=== PATIENT | female | born 1955 | race Caucasian/White ===

== ENCOUNTER → 2019-01-30 | Outpatient (CLI) | payer MEDICARE ==
--- NOTE | 2019-02-07 13:43 | MM ---
Reason for exam: screening (asymptomatic). Last mammogram was performed 10 years and 5 months ago. History: Patient is postmenopausal. Family history of breast cancer in mother at age 80. Physical Findings: A clinical breast exam by your physician is recommended on an annual basis and results should be correlated with mammographic findings. MG 3D Screening Mammo W/Cad Bilateral CC and MLO view(s) were taken. Prior study comparison: August 25, 2008, mammogram, performed at [place]. The breast tissue is heterogeneously dense. This may lower the sensitivity of mammography. Benign appearing bilateral calcifications. No suspicious abnormality on the right breast. Central left middle depth asymmetry. ASSESSMENT: Incomplete: need additional imaging evaluation, BI-RAD 0 RECOMMENDATION: Special view mammogram of the left breast. If lesion persists on supplemental views, image directed ultrasound is recommended. [facility] will attempt to contact patient to return for supplemental views and ultrasound if indicated.
== END | disposition home or self-care (01) ==
LOC: RADMAMWWP 14:11
PROVIDERS: ATTEND Family Medicine
DX: Z12.31 Encounter for screening mammogram for malignant neoplasm of breast (principal)
CPT/HCPCS: 77063; 77067

== ENCOUNTER → 2019-02-20 | Outpatient (CLI) | payer MEDICARE ==
--- NOTE | 2019-02-20 14:50 | MM ---
Reason for exam: additional evaluation requested from abnormal screening. Last mammogram was performed 1 month ago. History: Patient is postmenopausal. Family history of breast cancer in mother at age 80. Physical Findings: Nurse did not find any significant physical abnormalities on exam. MG 3D Work Up W/Cad LT Spot compression CC, spot compression MLO, and ML view(s) were taken of the left breast. Prior study comparison: January 30, 2019, bilateral MG 3d screening mammo w/cad. August 25, 2008, mammogram, performed at [place]. The breast tissue is heterogeneously dense. This may lower the sensitivity of mammography. The previously seen abnormality resolves on additional views and appears as fibroglandular tissue compatible with summation. No suspicious abnormality. These results were verbally communicated with the patient and result sheet given to the patient on 02/20/19. ASSESSMENT: Benign, BI-RAD 2 RECOMMENDATION: Return to routine screening mammogram schedule for both breasts.
== END | disposition home or self-care (01) ==
LOC: RADMAMWWP 13:31
PROVIDERS: ATTEND Family Medicine
DX: R92.8 Other abnormal and inconclusive findings on diagnostic imaging of breast (principal)
CPT/HCPCS: 77065; G0279; 77061

== ENCOUNTER 2021-01-05 | Emergency (ER) | payer MEDICARE | END 2021-01-05 17:35 | disposition home or self-care (01) ==

== ENCOUNTER 2022-01-18 13:46 | Emergency (ER) | payer MEDICARE ==
[2022-01-18 13:52] VITALS: TEMP 98.1
[2022-01-18 15:03] LABS: Basophils % (A) 1 %; Eosinophils # (A) 0.1 k/uL (0-0.7); Eosinophils % (A) 2 %; HCT 52.3 % (34.0-46.0); HGB 16.9 gm/dL (11.4-16.0); Lymphocytes # (A) 2.3 k/uL (1.0-4.8); Lymphocytes % (A) 59 %; MCH 32.9 pg (25.0-35.0); MCHC 32.3 g/dL (31.0-37.0); MCV 101.9 fL (80.0-100.0); Macrocytosis Slight; Mean Platelet Volume 7.1; Monocytes # (A) 0.2 k/uL (0-1.0); Monocytes % (A) 5 %; Neutrophils # (A) 1.2 k/uL (1.3-7.7); Neutrophils % (A) 30 %; Platelet Count 222 k/uL (150-450); RBC 5.13 m/uL (3.80-5.40); RDW 14.3 % (11.5-15.5); WBC 3.9 k/uL (3.8-10.6)
[2022-01-18 15:10] LABS: Partial Thromboplastin Time 27.2 sec (22.0-30.0); Prothrombin Time 10.5 sec (9.0-12.0)
[2022-01-18 15:13] LABS: Lactic Acid, Venous 1.9 mmol/L (0.7-2.0)
[2022-01-18 15:15] LABS: ALT 34 U/L (4-34); AST 74 U/L (14-36); African American GFR (CKD) >90 (>60 ml/min/1.73 sqM); Albumin 4.7 g/dL (3.5-5.0); Alkaline Phosphatase 108 U/L (38-126); Anion Gap 9 mmol/L; Blood Urea Nitrogen 8 mg/dL (7-17); Calcium 9.2 mg/dL (8.4-10.2); Carbon Dioxide 33 mmol/L (22-30); Chloride 107 mmol/L (98-107); Glucose 94 mg/dL (74-99); Non-African American GFR(CKD) >90 (>60 ml/min/1.73 sqM); Potassium 4.4 mmol/L (3.5-5.1); Sodium 149 mmol/L (137-145); Total Bilirubin 0.2 mg/dL (0.2-1.3); Total Protein 8.3 g/dL (6.3-8.2)
--- NOTE | 2022-01-18 15:25 | XR ---
EXAMINATION TYPE: XR chest 2V DATE OF EXAM: 01/18/2022 3:19 PM COMPARISON: None TECHNIQUE: XR chest 2V Frontal and lateral views of the chest. CLINICAL INDICATION:Female, 67 years old with history of altered mental status; FINDINGS: Lungs/Pleura: Low lung volumes are present. There is no evidence of pleural effusion, focal consolida tion, or pneumothorax. Heart/mediastinum: Cardiomediastinal silhouette is unremarkable. Musculoskeletal: Multiple level degenerative disc disease changes seen throughout the spine. No acute osseous pathology. IMPRESSION: Low lung volumes with a generalized hazy appearance which could represent atelectasis versus pulmonar y edema correlate with serum BNP.
[2022-01-18 15:34] LABS: Alcohol 413 mg/dL
[2022-01-18] MEDS ORDERED: SODIUM CHLORIDE 0.9% 1,000 ML IV STA (15:54)
--- NOTE | 2022-01-18 16:00 | CT ---
EXAMINATION TYPE: CT brain wo con CT DLP: 1135.6 mGycm, Automated exposure control for dose reduction was used. DATE OF EXAM: 01/18/2022 3:54 PM COMPARISON: None. CLINICAL INDICATION:Female, 67 years old with history of Neuro deficit, acute, stroke suspected, weak ness and trouble walking TECHNIQUE: Brain: Multiple axial CT images of the brain were obtained without IV contrast. Coronal and sagittal reformats reviewed. FINDINGS: Brain: Extra-axial spaces: No abnormal extra-axial fluid collections. Ventricular system: Within normal limits Cerebral parenchyma: No acute intraparenchymal hemorrhage or mass effect. The koroma-white junction is well differentiated. Cerebral atrophy. Cerebellum: Unremarkable. Mass effect: No evidence of midline shift. Intracranial vasculature: unremarkable Soft tissues: Normal. Calvarium/osseous structures: No depressed skull fracture. Paranasal sinuses and mastoid air cells: Clear Visualized orbits: Bilateral aphakia IMPRESSION: No acute intracranial process.
--- NOTE | 2022-01-18 16:24 | CT ---
EXAMINATION TYPE: CT angio head neck CT DLP: 362.4 mGycm, Automated exposure control for dose reduction was used. DATE OF EXAM: 01/18/2022 4:11 PM COMPARISON: CT brain 01/18/2022. CLINICAL INDICATION:Female, 67 years old with history of Neuro deficit, acute, stroke suspected; weak ness and trouble walking. TECHNIQUE: Axially acquired helical CT angiogram of the head and neck was obtained with contrast util izing 65 cc of Isovue-370 administered intravenously. Axial images are supplemented with 3D reconstru ctions which were post-processed at an independent workstation. NASCET criteria used. FINDINGS: CTA HEAD: No evidence of acute intracranial hemorrhage, mass effect, or midline shift. The ventricles, sulci, a nd cisterns are unremarkable. The visualized portions of the internal carotid arteries, middle cerebral arteries, anterior cerebral arteries, and posterior cerebral arteries are patent. 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 The basilar and vertebral arteries are patent. Vertebral arteries are codominant. CTA NECK: Right Carotid System: The common carotid artery and external carotid artery are patent. The carotid bifurcation demonstrate s no evidence of hemodynamically significant stenosis. The remaining portions of the internal carotid artery demonstrate normal size without significant narrowing. Left Carotid System: The common carotid artery and external carotid artery are patent. Less than 50% stenosis secondary to noncalcified plaque carotid bifurcation. No evidence of hemodynamically significant stenosis. The re maining portions of the internal carotid artery demonstrate normal size without significant narrowing . Vertebral arteries are patent without evidence hemodynamically significant stenosis. There is a three-vessel aortic arch. The origins of the great vessels are patent. No evidence of hemo dynamically significant stenosis. IMPRESSION: 1. Less than 50% stenosis due to noncalcified plaque at the left carotid bifurcation. 2. No hemodynamically significant stenosis involving the right carotid system. 3. No evidence of high-grade stenosis or intracranial aneurysm within the brain.
[2022-01-18 16:36] LABS: Appearance,Urine Clear (Clear); Bilirubin,Urine Negative (Negative); Blood,Urine Negative (Negative); Color,Urine Light Yellow; Glucose,Urine (UA) Negative (Negative); Ketones,Urine Negative (Negative); Leukocyte Esterase,Urine Negative (Negative); Nitrite,Urine Negative (Negative); Protein,Urine Negative (Negative); Specific Gravity,Urine 1.029 (1.001-1.035); Urobilinogen,Urine <2.0 mg/dL (<2.0)
[2022-01-18 16:44] LABS: Amphetamine Screen,Urine Not Detected (NotDetected); Barbiturate Screen,Urine Not Detected (NotDetected); Benzodiazepines Screen,Urine Detected (NotDetected); Cocaine Screen,Urine Not Detected (NotDetected); Methadone Screen, Urine Not Detected (NotDetected); Opiate Screen,Urine Not Detected (NotDetected); Oxycodone Screen, Urine Not Detected (NotDetected); Phencyclidine Screen,Urine Not Detected (NotDetected); Tricyclic Antidepressant,Urine Not Detected (NotDetected); Urn Cannabinoid Scrn Not Detected (NotDetected)
--- NOTE | 2022-01-18 17:00 | ED ---
Weakness HPI - General Chief complaint: Weakness Stated complaint: Trouble walking Time Seen by Provider: 01/18/22 14:04 Source: patient Mode of arrival: wheelchair Limitations: no limitations - History of Present Illness Initial comments: Patient is a 67-year-old female with past medical history of seizure disorder who presents to the emergency department for evaluation of generalized weakness and balance issues. Patient was brought in by her who urged her to be evaluated. He states for the past 6 days patient has appeared weak and has been sleeping more than usual. Patient fell onto the wooden floor yesterday due to balance issues. The fall was not witnessed. Patient states she did not hit her head. Denies blood the use. She denies headache, double vision, blurry vision, dizziness, lightheadedness. has also noticed intermittent slurred speech and droopy eyes. Patient states she feels well. She denies fever, chills, upper respiratory symptoms, chest pain, shortness of breath, abdominal pain, nausea, vomiting, and burning with urination. Denies history of stroke. Denies family history of stroke. Does not take seizure medication. Reports last seizure 1 year ago. Reports alcohol use 1-2 times a week. States she drinks a glass or 2 of wine at a time. Denies tobacco or illicit drug use. - Related Data Previous Rx's Medication Instructions Recorded levETIRAcetam [Keppra] 500 mg PO DAILY #14 tab 01/05/21 Allergies Allergy/AdvReac Type Severity Reaction Status Date / Time prochlorperazine Allergy Unknown Verified 01/18/22 13:52 [From Compazine] Review of Systems ROS Statement: Those systems with pertinent positive or pertinent negative responses have been documented in the HPI. ROS Other: All systems not noted in ROS Statement are negative. Past Medical History Past Medical History: Seizure Disorder Additional Past Medical History / Comment(s): glaucoma History of Any Multi-Drug Resistant Organisms: None Reported Additional Past Surgical History / Comment(s): cataract surgery Past Psychological History: PTSD Smoking Status: Never smoker Past Alcohol Use History: Occasional Past Drug Use History: None Reported General Exam Limitations: no limitations General appearance: alert, appears intoxicated Eye exam: Present: normal appearance, PERRL, EOMI. Absent: scleral icterus, conjunctival injection, periorbital swelling Neck exam: Present: normal inspection. Absent: tenderness, meningismus, lymphadenopathy Respiratory exam: Present: normal lung sounds bilaterally. Absent: respiratory distress, wheezes, rales, rhonchi, stridor Cardiovascular Exam: Present: regular rate, normal rhythm, normal heart sounds. Absent: systolic murmur, diastolic murmur, rubs, gallop, clicks GI/Abdominal exam: Present: soft, normal bowel sounds. Absent: distended, tenderness, guarding, rebound, rigid Extremities exam: Present: normal inspection, normal capillary refill. Absent: pedal edema Neurological exam: Present: alert, oriented X3, CN II-XII intact. Absent: motor sensory deficit Expanded Patient oriented to: Present: person, place, time Cranial nerves: EOM's Intact: Normal, Tongue Deviation: Normal, Nystagmus: Normal, Facial Sensation: Normal, Facial Palsy with Forehead Movement: Normal, Facial Palsy without Forehead Movement: Normal Cerebellar function: Finger to Nose: Normal, Heel to Claudio: Normal Upper motor neuron: Cooper Neglect: Normal, Pronator Drift: Normal Motor strength exam: RUE: 5, LUE: 5, RLE: 5, LLE: 5 Psychiatric exam: Present: normal mood. Absent: normal affect (slowed responses ) Skin exam: Present: warm, dry, intact, normal color. Absent: rash Course Vital Signs 01/18/22 13:47 Temperature 98.1 F Pulse Rate 87 Respiratory 16 Rate Blood Pressure 140/84 O2 Sat by Pulse 95 Oximetry Procedures - [place] Protocol (Time Out) Nurse: Chayo Ba Medical Decision Making - Medical Decision Making This is a 67-year-old female with past febrile history of seizure disorder who presents to the emergency department for evaluation of generalized weakness, slurred speech, and balance issues. Thorough history and examination were performed. Patient no apparent distress. Vitals stable. NIH score is 1 for dysarthria. Last known well was 6 days ago. Despite 's report of weakne ss and eyelid drooping, this is not evident during neurological exam today. Stroke workup initiated. Brain CT is negative for acute intracranial process. Due to husbands concern for balance issues I did obtain a CT angiogram which showed < 50% stenosis of the left carotid bifurcation, no hemodynamically significant stenosis involving the right carotid system, and no evidence of high-grade stenosis or intracranial aneurysm within the brain. Chest x-ray is negative for acute process. Laboratory studies obtained. Patient has significantly elevated alcohol level at 413. Benzodiazepines detected on urine drug screen. Results discussed with patient and . Acute neurological process ruled out today. We spoke in detail that patient's symptoms reflect heavy alcohol intoxication. They understand that benzodiazepines, especially when taken with alcohol, can worsen the symptoms. states he can safely drive patient home. Patient will be discharged with referral to [place]. Return parameters discussed. Patient verbalize understanding and are agreeable to this plan. Dr. Alonzo is my attending. - Lab Data Result diagrams: 01/18/22 14:41 01/18/22 14:41 Lab Results 01/18/22 01/18/22 01/18/22 Range/Units 14:41 14:41 14:41 WBC 3.9 (3.8-10.6) k/uL RBC 5.13 (3.80-5.40) m/uL Hgb 16.9 H (11.4-16.0) gm/dL Hct 52.3 H (34.0-46.0) % MCV 101.9 H (80.0-100.0) fL MCH 32.9 (25.0-35.0) pg MCHC 32.3 (31.0-37.0) g/dL RDW 14.3 (11.5-15.5) % Plt Count 222 (150-450) k/uL MPV 7.1 Neutrophils % 30 % Lymphocytes % 59 % Monocytes % 5 % Eosinophils % 2 % Basophils % 1 % Neutrophils # 1.2 L (1.3-7.7) k/uL Lymphocytes # 2.3 (1.0-4.8) k/uL Monocytes # 0.2 (0-1.0) k/uL Eosinophils # 0.1 (0-0.7) k/uL Basophils # 0.0 (0-0.2) k/uL Macrocytosis Slight PT 10.5 (9.0-12.0) sec INR 1.0 (<1.2) APTT 27.2 (22.0-30.0) sec Sodium (137-145) mmol/L Potassium (3.5-5.1) mmol/L Chloride (98-107) mmol/L Carbon Dioxide (22-30) mmol/L Anion Gap mmol/L BUN (7-17) mg/dL Creatinine (0.52-1.04) mg/dL Est GFR (CKD-EPI)AfAm (>60 ml/min/1.73 sqM) Est GFR (CKD-EPI)NonAf (>60 ml/min/1.73 sqM) Glucose (74-99) mg/dL Plasma Lactic Acid Umair (0.7-2.0) mmol/L Calcium (8.4-10.2) mg/dL Total Bilirubin (0.2-1.3) mg/dL AST (14-36) U/L ALT (4-34) U/L Alkaline Phosphatase (38-126) U/L Ammonia (<30) umol/L Troponin I (0.000-0.034) ng/mL Total Protein (6.3-8.2) g/dL Albumin (3.5-5.0) g/dL Urine Color Light Yellow Urine Appearance Clear (Clear) Urine pH 5.0 (5.0-8.0) Ur Specific [place] 1.029 (1.001-1.035) Urine Protein Negative (Negative) Urine Glucose (UA) Negative (Negative) Urine Ketones Negative (Negative) Urine Blood Negative (Negative) Urine Nitrite Negative (Negative) Urine Bilirubin Negative (Negative) Urine Urobilinogen <2.0 (<2.0) mg/dL Ur Leukocyte Esterase Negative (Negative) Urine Opiates Screen Not Detected (NotDetected) Ur Oxycodone Screen Not Detected (NotDetected) Urine Methadone Screen Not Detected (NotDetected) Ur Propoxyphene Screen Not Detected (NotDetected) Ur Barbiturates Screen Not Detected (NotDetected) U Tricyclic Antidepress Not Detected (NotDetected) Ur Phencyclidine Scrn Not Detected (NotDetected) Ur Amphetamines Screen Not Detected (NotDetected) U Methamphetamines Scrn Not Detected (NotDetected) U Benzodiazepines Scrn Detected H (NotDetected) Urine Cocaine Screen Not Detected (NotDetected) U Marijuana (THC) Screen Not Detected (NotDetected) Serum Alcohol mg/dL 01/18/22 01/18/22 01/18/22 Range/Units 14:41 14:41 14:41 WBC (3.8-10.6) k/uL RBC (3.80-5.40) m/uL Hgb (11.4-16.0) gm/dL Hct (34.0-46.0) % MCV (80.0-100.0) fL MCH (25.0-35.0) pg MCHC (31.0-37.0) g/dL RDW (11.5-15.5) % Plt Count (150-450) k/uL MPV Neutrophils % % Lymphocytes % % Monocytes % % Eosinophils % % Basophils % % Neutrophils # (1.3-7.7) k/uL Lymphocytes # (1.0-4.8) k/uL Monocytes # (0-1.0) k/uL Eosinophils # (0-0.7) k/uL Basophils # (0-0.2) k/uL Macrocytosis PT (9.0-12.0) sec INR (<1.2) APTT (22.0-30.0) sec Sodium 149 H (137-145) mmol/L Potassium 4.4 (3.5-5.1) mmol/L Chloride 107 (98-107) mmol/L Carbon Dioxide 33 H (22-30) mmol/L Anion Gap 9 mmol/L BUN 8 (7-17) mg/dL Creatinine 0.66 (0.52-1.04) mg/dL Est GFR (CKD-EPI)AfAm >90 (>60 ml/min/1.73 sqM) Est GFR (CKD-EPI)NonAf >90 (>60 ml/min/1.73 sqM) Glucose 94 (74-99) mg/dL Plasma Lactic Acid Umair 1.9 (0.7-2.0) mmol/L Calcium 9.2 (8.4-10.2) mg/dL Total Bilirubin 0.2 (0.2-1.3) mg/dL AST 74 H (14-36) U/L ALT 34 (4-34) U/L Alkaline Phosphatase 108 (38-126) U/L Ammonia <9 (<30) umol/L Troponin I <0.012 (0.000-0.034) ng/mL Total Protein 8.3 H (6.3-8.2) g/dL Albumin 4.7 (3.5-5.0) g/dL Urine Color Urine Appearance (Clear) Urine pH (5.0-8.0) Ur Specific [place] (1.001-1.035) Urine Protein (Negative) Urine Glucose (UA) (Negative) Urine Ketones (Negative) Urine Blood (Negative) Urine Nitrite (Negative) Urine Bilirubin (Negative) Urine Urobilinogen (<2.0) mg/dL Ur Leukocyte Esterase (Negative) Urine Opiates Screen (NotDetected) Ur Oxycodone Screen (NotDetected) Urine Methadone Screen (NotDetected) Ur Propoxyphene Screen (NotDetected) Ur Barbiturates Screen (NotDetected) U Tricyclic Antidepress (NotDetected) Ur Phencyclidine Scrn (NotDetected) Ur Amphetamines Screen (NotDetected) U Methamphetamines Scrn (NotDetected) U Benzodiazepines Scrn (NotDetected) Urine Cocaine Screen (NotDetected) U Marijuana (THC) Screen (NotDetected) Serum Alcohol 413 H* mg/dL Disposition Clinical Impression: Alcohol use, Fall, Slurred speech Disposition: HOME SELF-CARE Condition: Fair Instructions (If sedation given, give patient instructions): Abuse of Alcohol (ED), Weakness (ED) Additional Instructions: Chronic alcohol use can cause permanent liver damage and other health issues. Quitting can be hard on your own. I have provided a resource for you to reach out to help you quit. Is very important you do not take benzodiazepines while drinking alcohol. Return to the emergency department if you experience new, concerning, or worsening symptoms. Is patient prescribed a controlled substance at d/c from ED?: No Referrals: Nonstaff,Physician [Primary Care Provider] - 1-2 days [facility] [Outside] - 1-2 days Time of Disposition: 16:59
[2022-01-18 17:21] VITALS: BP 121/70; PULSE 71; RESP 18
== END 2022-01-18 17:21 | disposition home or self-care (01) ==
LOC: EC 13:46
DX: Z72.89 Other problems related to lifestyle (principal); R47.81 Slurred speech; Z88.9 Allergy status to unspecified drugs, medicaments and biological substances; W19.XXXA Unspecified fall, initial encounter
CPT/HCPCS: 36415; 93005; 80053; 82140; 83605; 84484; 85025; 85610; 85730; 81003; 80306; 71046; 70496; 70450; 70498; 99285; 96360; G0480; Q9967; 80320

== ENCOUNTER 2022-02-24 18:40 | Emergency (ER) | payer MEDICARE ==
[2022-02-24 18:49] VITALS: RESP 18; TEMP 97.1
[2022-02-24 19:00] LABS: Glucose,Whole Blood 90 mg/dL (70-110)
--- NOTE | 2022-02-24 19:18 | ED ---
General Adult HPI - General Chief complaint: Syncope Stated complaint: fall Time Seen by Provider: 02/24/22 18:44 Source: patient, EMS Mode of arrival: EMS Limitations: altered mental status - History of Present Illness Initial comments: Dictation was produced using [employer] dictation software. please excuse any grammatical, word or spelling errors. Chief Complaint: 67-year-old female presents emergency Department with presumed alcohol intoxication and syncopal event History of Present Illness: 67-year-old female she brought in by EMS. Patient allegedly had a syncopal event. Patient had been drinking alcohol today. She has history of alcohol abuse. at the bedside reports that he went out for a walk when he came back and saw patient on the floor. Denies any complaints at this time. Denies any pain complaints. noticed a bruise on her face. Patient does not have any history of cardiac disease The ROS documented in this emergency department record has been reviewed and confirmed by me. Those systems with pertinent positive or negative responses have been documented in the HPI. All other systems are other negative and/or noncontributory. PHYSICAL EXAM: General Impression: Alert and oriented x3, not in acute distress, appears inebriated HEENT: Hematoma over the right lateral, extra-ocular movements intact, pupils equal and reactive to light bilaterally, mucous membranes moist. Cardiovascular: Heart regular rate and rhythm Chest: Able to complete full sentences, no retractions, no tachypnea Abdomen: abdomen soft, non-tender, non-distended, no organomegaly Musculoskeletal: Pulses present and equal in all extremities, no peripheral edema Motor: no focal deficits noted Neurological: CN II-XII grossly intact, no focal motor or sensory deficits noted Skin: Intact with no visualized rashes Psych: Normal affect and mood ED course: 67-year-old female presents to the emergency department after syncopal event. Allegedly she had consumed alcohol today. Signs upon arrival are within acceptable limits. Laboratory evaluation obtained CBC, metabolic panel is unremarkable. Serum alcohol is 376. There is a mild acidosis alcohol-related. Computed tomography scan of the head and C-spine shows traumatic subarachnoid hemorrhage to the right hemisphere. Patient reevaluated bedside at 8:30 PM found to be stable medical condition. Patient be transferred to [facility] for further care. Case discussed with Dr. Baca who is willing to accept patients care for ER transfer. EKG interpretation: Ventricular rate 79, sinus rhythm, MA interval 187, QTC 1, QTC 418. No MA prolongation, no QTC prolongation, no ST or T-wave changes noted. . Overall, this EKG is unremarkable - Related Data Previous Rx's Medication Instructions Recorded levETIRAcetam [Keppra] 500 mg PO DAILY #14 tab 01/05/21 Allergies Allergy/AdvReac Type Severity Reaction Status Date / Time prochlorperazine Allergy Unknown Verified 02/24/22 18:49 [From Compazine] Review of Systems ROS Statement: Those systems with pertinent positive or pertinent negative responses have been documented in the HPI. ROS Other: All systems not noted in ROS Statement are negative. Past Medical History Past Medical History: Seizure Disorder Additional Past Medical History / Comment(s): glaucoma History of Any Multi-Drug Resistant Organisms: None Reported Additional Past Surgical History / Comment(s): cataract surgery Past Psychological History: PTSD Smoking Status: Never smoker Past Alcohol Use History: Occasional Past Drug Use History: None Reported General Exam Limitations: altered mental status Course Vital Signs 02/24/22 18:43 Temperature 97.1 F L Pulse Rate 97 Respiratory 18 Rate Blood Pressure 159/105 O2 Sat by Pulse 96 Oximetry Medical Decision Making - Lab Data Result diagrams: 02/24/22 19:00 02/24/22 19:00 Lab Results 02/24/22 02/24/22 02/24/22 Range/Units 18:59 19:00 19:00 WBC 6.0 (3.8-10.6) k/uL RBC 4.49 (3.80-5.40) m/uL Hgb 14.6 (11.4-16.0) gm/dL Hct 44.0 (34.0-46.0) % MCV 98.0 (80.0-100.0) fL MCH 32.5 (25.0-35.0) pg MCHC 33.2 (31.0-37.0) g/dL RDW 13.1 (11.5-15.5) % Plt Count 127 L (150-450) k/uL MPV 8.3 Neutrophils % (Manual) 47 % Lymphocytes % (Manual) 38 % Monocytes % (Manual) 10 % Eosinophils % (Manual) 3 % Basophils % (Manual) 1 % Myelocytes % 1 % Neutrophils # (Manual) 2.82 (1.3-7.7) k/uL Lymphocytes # (Manual) 2.28 (1.0-4.8) k/uL Monocytes # (Manual) 0.60 (0-1.0) k/uL Eosinophils # (Manual) 0.18 (0-0.7) k/uL Basophils # (Manual) 0.06 (0-0.2) k/uL Myelocytes # (Manual) 0.06 H (0) k/uL Nucleated RBCs 0 (0-0) /100 WBC Manual Slide Review Performed Sodium 142 (137-145) mmol/L Potassium 4.2 (3.5-5.1) mmol/L Chloride 107 (98-107) mmol/L Carbon Dioxide 20 L (22-30) mmol/L Anion Gap 15 mmol/L BUN 13 (7-17) mg/dL Creatinine 0.57 (0.52-1.04) mg/dL Est GFR (CKD-EPI)AfAm >90 (>60 ml/min/1.73 sqM) Est GFR (CKD-EPI)NonAf >90 (>60 ml/min/1.73 sqM) Glucose 94 (74-99) mg/dL POC Glucose (mg/dL) 90 (70-110) mg/dL POC Glu Signal Person ID Trang Moralez Calcium 8.7 (8.4-10.2) mg/dL Magnesium 1.7 (1.6-2.3) mg/dL Serum Alcohol 376 H* mg/dL Critical Care Time Critical Care Time: Yes Total Critical Care Time: 33 Disposition Clinical Impression: Traumatic subarachnoid hemorrhage Disposition: OTHER INSTITUTION NOT DEFINED Condition: Serious Referrals: None,Stated [Primary Care Provider] - 1-2 days Time of Disposition: 20:33 - Out of Hospital Transfer - Req. Specs Out of Hospital Transfer - Requested Specifics: Other Emergency Center ([facility])
[2022-02-24 19:19] LABS: African American GFR (CKD) >90 (>60 ml/min/1.73 sqM); Anion Gap 15 mmol/L; Blood Urea Nitrogen 13 mg/dL (7-17); Calcium 8.7 mg/dL (8.4-10.2); Carbon Dioxide 20 mmol/L (22-30); Chloride 107 mmol/L (98-107); Glucose 94 mg/dL (74-99); Magnesium 1.7 mg/dL (1.6-2.3); Non-African American GFR(CKD) >90 (>60 ml/min/1.73 sqM); Potassium 4.2 mmol/L (3.5-5.1); Sodium 142 mmol/L (137-145)
[2022-02-24 19:23] LABS: HGB 14.6 gm/dL (11.4-16.0); MCH 32.5 pg (25.0-35.0); MCHC 33.2 g/dL (31.0-37.0); Mean Platelet Volume 8.3; Platelet Count 127 k/uL (150-450); RBC 4.49 m/uL (3.80-5.40); RDW 13.1 % (11.5-15.5)
[2022-02-24 19:27] LABS: Alcohol 376 mg/dL
[2022-02-24 19:37] LABS: Basophils # (M) 0.06 k/uL (0-0.2); Eosinophils # (M) 0.18 k/uL (0-0.7); Lymphocytes # (M) 2.28 k/uL (1.0-4.8); Myelocytes # (M) 0.06 k/uL (0); Myelocytes % 1 %; Neutrophils # (M) 2.82 k/uL (1.3-7.7); Neutrophils % (M) 47 %; Nucleated Red Blood Cells 0 /100 WBC (0-0); Total Cells Counted 100
--- NOTE | 2022-02-24 20:27 | CT ---
EXAMINATION TYPE: CT brain cindyine wo con DATE OF EXAM: 02/24/2022 COMPARISON: CT brain 01/18/2022 HISTORY: Fall, head trauma CT DLP: 1310.8 mGycm Automated exposure control for dose reduction was used. There is subarachnoid high attenuation in the right sylvian fissure and right posterior frontal lobe sulci related to acute subarachnoid hemorrhage. There is no mass effect. No midline shift. There is d iffuse cerebral cortical atrophy. The calvarium is intact. The skull base is intact. There is normal aeration of the mastoid sinuses. The cervical vertebra have normal alignment. There is C5-6 and C6-7 disc space narrowing with spur fo rmation. No compression fracture. There is mild hypertrophic cervical facet arthropathy. IMPRESSION: Acute right hemisphere subarachnoid hemorrhage as above in the sylvian fissure and right posterior fr ontal lobe that could be acute traumatic hemorrhage. Cerebral atrophy. Atrophy unchanged. Hemorrhage is new compared to old exam. Cervical spondylotic changes at C5-6 and C6-7. No fracture seen of the cervical spine.
[2022-02-24 21:00] VITALS: BP 133/88; PULSE 82
== END 2022-02-24 22:04 | disposition other institution (70) ==
LOC: EC 18:40
DX: S06.6X9A Traumatic subarachnoid hemorrhage with loss of consciousness of unspecified duration, initial encounter (principal); Z88.8 Allergy status to other drugs, medicaments and biological substances; W18.30XA Fall on same level, unspecified, initial encounter
CPT/HCPCS: 36415; 93005; 80048; 83735; 85025; 72125; 70450; 99291; G0480; 80320